=== PATIENT | male | born 2000 | race African-American/Black ===

== ENCOUNTER 2024-12-03 10:00 | Emergency (ER) | payer BC ==
[~2024-12-03] VITALS: Ht 177.8 cm; Wt 74.8 kg
[2024-12-03] MEDS ORDERED: ACETAMINOPHEN ES 500 MG TABLET ONE (10:18)
[2024-12-03] MEDS: ACETAMINOPHEN ES 500 MG TABLET PO ONE (10:25)
[2024-12-03] MEDS: ONDANSETRON HCL/PF 4 MG/2 ML VIAL IVP ONE (11:30)
[2024-12-03] MEDS ORDERED: ONDANSETRON HCL/PF 4 MG/2 ML VIAL ONE (11:31)
[2024-12-03] MEDS ORDERED: MORPHINE SULFATE INJ 4 MG/ML DISP.SYRIN ONE (11:32)
[2024-12-03 11:33] LABS: PLATELET COUNT (AUTO) 196 K/uL (150-450); RED BLOOD CELL COUNT(AUTO) 5.93 MIL/uL (4.5-6.0); RED CELL DISTRIBUTION WIDTH 14.0 % (11.5-15.0); WHITE BLOOD COUNT (AUTO) 5.1 K/uL (4.3-11.0)
[2024-12-03] MEDS: IV NS 0.9% 1,000 ML BAG IV ONE (11:41)
[2024-12-03] MEDS: MORPHINE SULFATE INJ 2 MG/ML DISP.SYRIN IV ONE (11:41)
[2024-12-03 11:42] LABS: CALCIUM, SERUM 9.3 mg/dL (8.5-10.1); CREATININE 1.2 mg/dL (0.6-1.3); SODIUM SERUM 139.0 mmol/L (136-145); UREA NITROGEN, BLOOD 11.0 mg/dL (7-18)
[2024-12-03] MEDS ORDERED: IOHEXOL-300 100 ML VIAL IV ONE (11:51)
[2024-12-03] MEDS ORDERED: IV NS 0.9% 250 ML IV ONE (11:51)
[2024-12-03] MEDS ORDERED: NAPR-1164 PO (14:00)
[2024-12-03 14:17] VITALS: BP 129/74; TEMP 98.4; O2SAT 100
== END 2024-12-03 14:18 | disposition home or self-care (01) ==
LOC: ER 10:16
DX: S70.02XA Contusion of left hip, initial encounter (principal); V03.09XA Pedestrian with other conveyance injured in collision with car, pick-up truck or van in nontraffic accident, initial encounter; Y93.89 Activity, other specified; Y92.89 Other specified places as the place of occurrence of the external cause; Y99.8 Other external cause status
CPT/HCPCS: 99285; 74177; 96374; 96361; 96375; 73503; 73590; 85025; 80048; 36415; J2270; J2405; J7030; J7050; A4223; Q9967; 73502

== ENCOUNTER 2025-04-04 17:03 | Emergency (ER) | payer BC ==
[~2025-04-04] VITALS: Ht 180.3 cm; Wt 82.6 kg
[~2025-04-04 17:03] MED LIST: NAPR-1164 PO
[2025-04-04] MEDS ORDERED: KETOROLAC TROMETHAMINE 15 MG/ML VIAL ONE (18:01)
[2025-04-04] MEDS: KETOROLAC TROMETHAMINE 15 MG/ML VIAL IM ONE (18:12)
[2025-04-04] MEDS ORDERED: ALBU18HF2 IH (18:31)
[2025-04-04] MEDS ORDERED: KETO10TA2 PO (18:31)
[2025-04-04 18:42] VITALS: BP 128/78; TEMP 98.3; O2SAT 97
== END 2025-04-04 18:43 | disposition home or self-care (01) ==
LOC: ER 17:03
DX: R07.9 Chest pain, unspecified (principal); R06.02 Shortness of breath; J45.909 Unspecified asthma, uncomplicated; Z87.09 Personal history of other diseases of the respiratory system
CPT/HCPCS: 99283; 71045; 96372; 93005; J1885